=== PATIENT | female | born 1995 | race Caucasian/White ===

== ENCOUNTER → 2024-01-07 11:16 | Outpatient (REF) | payer BC, SELFPAY ==
[2024-01-10 08:43] LABS: Aptima Media Type MultiTest Swab; Chlamydia trachomatis by TMA Negative (Negative); Neisseria gonorrhoeae by TMA Negative (Negative); Specimen Source Vaginal
== END ==
LOC: CLAB 11:16
PROVIDERS: ATTENDING PHYSICIAN Nurse Practitioner Adult Health
DX: Z01.419 Encounter for gynecological examination (general) (routine) without abnormal findings (principal); Z11.3 Encounter for screening for infections with a predominantly sexual mode of transmission
CPT/HCPCS: 87491; 87591

== ENCOUNTER 2024-04-26 12:10 | Emergency (ER) | payer BC, SELFPAY ==
[2024-04-26] VITALS (8 sets, daily range): BP systolic 100–119; BP diastolic 64–78; PULSE 58–74; BMI 23.7
[2024-04-26 12:28] LABS: Glucose - Point of Care 97 mg/dl (70-99)
[2024-04-26 12:37] LABS: % Basophils 0.6 % (0-2); % Immature Granulocytes 0.3 % (0-0.5); % Lymphocytes 24.7 % (20.5-51.1); % Neutrophils 63.4 % (42.2-75.2); Absolute Eosinophils 0.1 10^3/uL (0-0.7); Absolute Lymphocytes 1.8 10^3/uL (1.2-3.4); Absolute Monocytes 0.6 10^3/uL (0.1-0.6); Absolute Neutrophils 4.5 10^3/uL (1.4-6.5); Hematocrit 32.6 % (37.0-47.0); Hemoglobin 10.5 g/dL (12.0-16.0); Mean Corp Hgb Conc. 32.2 g/dL (33.0-37.0); Mean Corpuscular Hgb 27.2 pg (27.0-31.0); Mean Corpuscular Volume 84.5 fL (81.0-99.0); Mean Platelet Volume 9.8 fL (7.4-10.4); Nucleated Red Blood Cells % 0 %; Platelet Count 360 10^3/uL (130-400); Red Blood Cell Count 3.86 10^6/uL (4.20-5.40); Red Cell Dist. Width 13.3 % (11.5-14.5); White Blood Cell Count 7.1 10^3/uL (4.8-10.8)
--- NOTE | 2024-04-26 12:37 | ED.GENMED ---
History of Present Illness
General
Chief Complaint: Fainting/Passed Out
Source: patient
Time Seen by Provider: 04/26/24 12:26
Travel History
Have you had any contact with someone who has COVID-19?: No
Do you have any symptoms of coronavirus? Fever > 100 degrees, chills, cough, shortness of breath, sore throat, loss of taste or smell, muscle aches, or headache?: No
History of Present Illness
History of Present Illness:
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
Patient states she does experience the lightheadedness somewhat frequently but notes she normally does not pass out with this. On arrival to the emergency department patient states she feels little bit better but still little lightheaded. She did
have something to eat and drink this morning prior to working. Denies any fevers or infectious symptoms, no nausea vomiting or diarrhea. No other concerns including chest pain, shortness of breath or palpitations.
Past History
Past History
ED Past Medical History: Asthma, GERD and Other (Migraines)
ED Past Surgical History: None
Social History
Tobacco: Non-smoker
Alcohol: Occasional
Drug: None
Personal: Single
Living: with family
Employment: Employed
Review of Systems
Review of Systems
All Other Systems: ROS reviewed and negative except as documented in HPI and ROS
Phy Exam
Physical Exam
Physical Exam:
GENERAL: Alert , in no apparent distress
EYE: conjunctiva clear
NECK: Supple
ENT: o/p clr, mmm.
CARDIAC: Borderline bradycardic rate with heart rates around 58 to 67 bpm, no murmur
LUNGS: Clear breath sounds bilaterally, no acute respiratory distress, no wheezes/rales/rhonchi
Abdomen: Soft, nontender, nondistended
NEUROLOGICAL: Alert and oriented
SKIN: Warm and dry, skin intact.
MUSCULOSKELETAL: well perfused.
PSYCH: Normal and appropriate interaction.
Scores
Heart Failure Risk
Heart Failure Risk Score: Not Applicable
Heart Score for Chest Pain Patients
STEMI patient?: Not applicable
Withdrawal Assessment of Alcohol
Withdrawal Assessment Completed?: Not applicable
Course
Orders/Labs/Results
Orders:
Orders
04/26/24 12:13
EKG [Electrocardiogram (*1)] Urgent
Reason for Study: Syncope
04/26/24 12:14
EKG- Treatment ONCE
04/26/24 12:22
CMP [Comprehensive Metabolic Panel] Urgent
Complete Blood Count/With Diff Urgent
04/26/24 12:29
Orthostatic VS- Treatment ONCE
0.9% Sodium Chloride 1000 ml [Nss] 1,000 ml IV BOLUS
Abnormal Lab Results
04/26/24
12:22
RBC 3.86 L 10^6/uL
(4.20-5.40)
Hgb 10.5 L g/dL
(12.0-16.0)
Hct 32.6 L %
(37.0-47.0)
MCHC 32.2 L g/dL
(33.0-37.0)
Glucose 100 H mg/dl
(70-99)
04/26/24 12:22
04/26/24 12:22
Vital Signs
Initial and Last Documented VS:
Initial Vital Signs
BP
101/70
04/26/24 12:13
Last Documented Vital Signs
Pulse Resp BP Pulse Ox
58 12 110/64 100
04/26/24 14:45 04/26/24 14:45 04/26/24 14:00 04/26/24 14:45
MDM/Problems Addressed
Differential Diagnosis Includes:
Orthostasis, vagal event, less likely cardiac dysrhythmia
MDM/Problems Addressed:
29-year-old female presenting to the ER for evaluation after she was at work when she started to feel presyncopal. Patient had a witnessed syncopal event. Still feeling somewhat lightheaded. Blood pressure is somewhat soft however patient states
her blood pressure is normally on the lower side. Suspect vagal event/orthostasis. Will treat with IV fluids. Reassessment following
*Pulse Oximetry
Patient hypoxic: no
*Airport Engineer Interpretation
Rate: normal
Rhythm: sinus
*Critical Care Note
Total Time (30-74mins, 75-104mins- exclusive of procedures): Not Applicable
Patient Management
Escalation/DeEscalation of care consider admission/obs:
Patient feeling better following fluids. She remains hemodynamically stable. Advised to increase fluids. If recurring episodes of syncope may need cardiology consultation. Stable for discharge home
ED Attending Note
-
Portions of this chart may have been created with voice recognition software.� Occasional wrong word or��sound alike� substitutions may have occurred due to the inherent limitations of voice recognition software.
Discharge Plan
Departure
Patient Disposition: Home (Routine Discharge)
Date of Disposition: 04/26/24
Time of Disposition: 14:50
Patient with high blood pressure during this ER visit?: No
Discharge Problem:
Syncope
Instructions: Syncope (Fainting) (DC)
Referrals:
NONE,* [Family Provider] -
Interventions
Interventions:
*Risk Screen - Suicide Last Done: 04/26/24 12:19
*General Assessment Last Done: 04/26/24 12:19
*Neglect/Abuse Screening Last Done: 04/26/24 12:19
*ED COVID-19 Vaccine History Last Done: 04/26/24 12:19
*Nursing Disposition Last Done: 04/26/24 15:02
ED- Cardiac Assessment Last Done: 04/26/24 12:20
ED- Neurological Assessment Last Done: 04/26/24 12:20
Discharge Date and Time
Discharge Date/Time: 04/26/24 15:03
Print Language: MONGOLIAN
[2024-04-26] MEDS: NSS 1000 IV (12:39)
[2024-04-26 12:55] LABS: ALT (SGPT) 13 U/L (0-35); AST (SGOT) 22 U/L (14-36); Albumin 4.2 g/dl (3.5-5.0); Alkaline Phosphatase 80 U/L (38-126); Blood Urea Nitrogen 12 mg/dl (7-17); Calcium 9.9 mg/dl (8.4-10.2); Carbon Dioxide 26 mmol/L (22-30); Chloride 104 mmol/L (98-107); Estimated Creatinine Clearance 89 ml/min; Glucose 100 mg/dl (70-99); Potassium 4.1 mmol/L (3.5-5.1); Sodium 137 mmol/L (135-145); Total Bilirubin 0.6 mg/dl (0.2-1.3); Total Protein 7.4 g/dl (6.3-8.2); eGFR > 60.00
== END 2024-04-26 15:03 | disposition home or self-care (01) ==
LOC: EMR 12:10
PROVIDERS: Emergency Medicine; EMERGENCY PHYSICIAN Emergency Medicine
DX: R55 Syncope and collapse (principal); K21.9 Gastro-esophageal reflux disease without esophagitis
CPT/HCPCS: 99284; 96360; 80053; 82962; 85025; 93005

== ENCOUNTER → 2024-07-22 08:44 | Outpatient (REF) | payer BC, SELFPAY ==
[2024-07-22 10:03] LABS: Hemoglobin 10.9 g/dL (12.0-16.0); Mean Corp Hgb Conc. 32.1 g/dL (33.0-37.0); Mean Corpuscular Hgb 24.9 pg (27.0-31.0); Mean Corpuscular Volume 77.8 fL (81.0-99.0); Mean Platelet Volume 9.8 fL (7.4-10.4); Platelet Count 358 10^3/uL (130-400); Red Blood Cell Count 4.37 10^6/uL (4.20-5.40); Red Cell Dist. Width 17.7 % (11.5-14.5); White Blood Cell Count 4.8 10^3/uL (4.8-10.8)
[2024-07-22 10:42] LABS: ALT (SGPT) 14 U/L (0-35); AST (SGOT) 23 U/L (14-36); Albumin 3.9 g/dl (3.5-5.0); Alkaline Phosphatase 74 U/L (38-126); Blood Urea Nitrogen 12 mg/dl (7-17); Calcium 9.6 mg/dl (8.4-10.2); Carbon Dioxide 27 mmol/L (22-30); Chloride 102 mmol/L (98-107); Glucose 85 mg/dl (70-99); HDL Cholesterol 69 mg/dl; LDL Cholesterol, Calculated 104 mg/dl; Potassium 4.4 mmol/L (3.5-5.1); Sodium 139 mmol/L (135-145); Total Bilirubin 0.7 mg/dl (0.2-1.3); Total Cholesterol 193 mg/dl (50-199); Total Protein 6.7 g/dl (6.3-8.2); Triglyceride 101 mg/dl (10-149); Very Low Density Lipoprotein 20 mg/dl (0-30); eGFR > 60.00
[2024-07-22 10:46] LABS: Glycohemoglobin (HgbA1c) 5.4 % (4.0-5.6)
[2024-07-22 11:00] LABS: TSH Reflex To Free T4 1.21 uIU/ml (0.47-4.68)
[2024-07-22 11:04] LABS: Ferritin 5.8 ng/ml (6.24-137)
[2024-07-22 11:36] LABS: Folate > 20.0 ng/ml (2.76-20); Vitamin B12 470 pg/ml (239-931)
[2024-07-24 11:10] LABS: Vitamin D 1,25 Dihydroxy 79.6 pg/mL (19.9-79.3)
== END ==
LOC: REG 08:44
PROVIDERS: ATTENDING PHYSICIAN Nurse Practitioner Family
DX: Z13.220 Encounter for screening for lipoid disorders (principal)
CPT/HCPCS: 36415; 80053; 80061; 82607; 82652; 82728; 82746; 83036; 84443; 85027

== ENCOUNTER 2024-08-04 13:36 | Outpatient (RCR) | payer BC, SELFPAY ==
[2024-08-04] MEDS: VENOFER 110 MG IV (14:14)
[2024-08-04 14:19] VITALS: BP 113/63
== END 2024-08-05 10:28 | disposition home or self-care (01) ==
LOC: OID 13:36
PROVIDERS: ATTENDING PHYSICIAN Nurse Practitioner Family
DX: D50.9 Iron deficiency anemia, unspecified (principal); R55 Syncope and collapse
CPT/HCPCS: 96365; J1756

== ENCOUNTER 2024-09-01 10:11 | Outpatient (RCR) | payer BC, SELFPAY ==
[2024-08-11] MEDS: VENOFER 110 MG IV (11:08)
[2024-08-11 11:12] VITALS: BP 110/57
[2024-08-11 12:40] VITALS: BP 100/55
[2024-08-16 07:54] VITALS: BP 108/52
[2024-08-16] MEDS: VENOFER 110 MG IV (08:04)
[2024-08-16 09:11] VITALS: BP 107/61
[2024-08-25 10:15] VITALS: BP 106/55
[2024-08-25] MEDS: VENOFER 110 MG IV (10:25)
[2024-09-01] MEDS: VENOFER 110 MG IV (10:29)
[2024-09-01 10:31] VITALS: BP 119/63
[2024-09-01 12:00] VITALS: BP 112/61
== END 2024-09-02 08:25 | disposition home or self-care (01) ==
LOC: OID 10:11
PROVIDERS: ATTENDING PHYSICIAN Nurse Practitioner Family
DX: D50.9 Iron deficiency anemia, unspecified (principal); R42 Dizziness and giddiness; G43.909 Migraine, unspecified, not intractable, without status migrainosus
CPT/HCPCS: 96365; J1756

== ENCOUNTER → 2025-01-12 11:37 | Outpatient (REF) | payer BC, SELFPAY ==
[2025-01-20 00:26] LABS: HPV, High Risk Detected; HPV, High Risk Source Cervical
== END ==
LOC: CPAP 11:37
PROVIDERS: ATTENDING PHYSICIAN Nurse Practitioner Adult Health
DX: Z01.419 Encounter for gynecological examination (general) (routine) without abnormal findings (principal); Z11.3 Encounter for screening for infections with a predominantly sexual mode of transmission
CPT/HCPCS: 87491; 87591; 87624

== ENCOUNTER → 2025-01-24 10:08 | Outpatient (REF) | payer BC, SELFPAY ==
[2025-01-24 10:55] LABS: Hematocrit 41.8 % (37.0-47.0); Hemoglobin 14.1 g/dL (12.0-16.0); Mean Corp Hgb Conc. 33.7 g/dL (33.0-37.0); Mean Corpuscular Hgb 31.1 pg (27.0-31.0); Mean Corpuscular Volume 92.3 fL (81.0-99.0); Mean Platelet Volume 9.5 fL (7.4-10.4); Platelet Count 287 10^3/uL (130-400); Red Blood Cell Count 4.53 10^6/uL (4.20-5.40); Red Cell Dist. Width 12.7 % (11.5-14.5); White Blood Cell Count 4.2 10^3/uL (4.8-10.8)
[2025-01-24 11:26] LABS: ALT (SGPT) 18 U/L (0-35); AST (SGOT) 23 U/L (14-36); Albumin 4.4 g/dl (3.5-5.0); Alkaline Phosphatase 72 U/L (38-126); Blood Urea Nitrogen 13 mg/dl (7-17); Calcium 9.9 mg/dl (8.4-10.2); Carbon Dioxide 29 mmol/L (22-30); Chloride 101 mmol/L (98-107); Glucose 81 mg/dl (70-99); HDL Cholesterol 88 mg/dl; LDL Cholesterol, Calculated 110 mg/dl; Potassium 4.9 mmol/L (3.5-5.1); Sodium 136 mmol/L (135-145); Total Bilirubin 1.4 mg/dl (0.2-1.3); Total Cholesterol 213 mg/dl (50-199); Triglyceride 77 mg/dl (10-149); Very Low Density Lipoprotein 15 mg/dl (0-30); eGFR > 60.00
[2025-01-24 11:57] LABS: TSH Reflex To Free T4 0.87 uIU/ml (0.47-4.68)
[2025-01-24 12:08] LABS: Ferritin 29.8 ng/ml (6.24-137)
== END ==
LOC: REG 10:08
PROVIDERS: ATTENDING PHYSICIAN Nurse Practitioner Family
DX: E55.9 Vitamin D deficiency, unspecified (principal); Z13.220 Encounter for screening for lipoid disorders; E61.1 Iron deficiency; Z13.29 Encounter for screening for other suspected endocrine disorder; Z13.1 Encounter for screening for diabetes mellitus
CPT/HCPCS: 36415; 80053; 80061; 82652; 82728; 83036; 84443; 85027